=== PATIENT | male | born 1950 | race Caucasian/White ===

== ENCOUNTER → 2017-01-04 | Outpatient (CLI) | payer BC ==
[~2017-01-04] MED LIST: ASPCH81X PO; ATOR-26 PO; DRON400T PO; FLUT0.15; GARL1TAB11 PO; HYDR-5688 PO; LEVO175T3 PO; LPR25 PO; NSP500 PO; PRLSR20 PO; RAMI10CA PO; TAMS0.4C38 PO
--- NOTE | 2017-01-04 17:44 | MYOCARDIAL PERFUSION SCAN ---
NUCLEAR STRESS TEST REQUESTING PHYSICIAN: Dr. Anthony Wang. PRIMARY CARE PHYSICIAN: Kennedy Hogan III MD STUDY TITLE: One-day nuclear medicine technetium-99m Cardiolite myocardial perfusion scan. INDICATION: Atypical chest pain, indeterminant stress echocardiogram. EKG: Normal sinus rhythm at ventricular rate of 62. Possible inferior infarct. No significant ST abnormalities. Stress EKG, occasional PACs, occasional PVCs. Exercised for 7 minutes and 3 seconds achieving 10.1 METs and 101% of maximum predicted heart rate. Blood pressure colton from 120/80-164/84. There was no significant exercise induced chest pain. Study was stopped due to shortness of breath. STRESS EKG: Showed 1 mm inferior horizontal/downsloping ST depressions, which resolved quickly less than 2 minutes in the recovery. TECHNIQUE: For the stress portion of the study 31.8 mCi of technetium-99m Cardiolite IV was injected at 1350 p.m. on 01/04/2017. Fifteen minutes following the injection, imaging of the heart was performed in multiple projections. For the rest portion of the study, 11.0 mCi of technetium-99m Cardiolite was injected IV at 11:30 a.m. One hour following the injection, imaging of the heart was performed in the same projections. FINDINGS: Raw images were reviewed in detail. There was noted mild diaphragmatic attenuation and mild gut uptake potentially impacting imaging of the inferior aspect of the heart. Otherwise, there was no significant pathologic extracardiac uptake. Short axis, horizontal long axis, vertical long axis images were reviewed in detail. There was no evidence of t.i.d. There was a severe moderate sized fixed inferior perfusion defect from the base to mid segment. There was no evidence of significant ischemia. There was normal LV function with an EF of 54%. The inferior base to midsegment was akinetic. LV size was upper limit of normal with an end-diastolic volume of 138 mL. IMPRESSION: 1. 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 No stress induced perfusion abnormalities. 2. Positive exercise EKG with [address] depressions, which quickly resolved in recovery. 3. Normal LV function with an EF of 54%. Inferior wall is akinetic from base to mid segment. 4. Above average functional capacity, exercised 7 minutes achieving 10 METs. No exercise induced chest pain. Normal hemodynamic response to exercise. 5. Overall, in this patient with known coronary artery disease likelihood of significant ischemia based on these findings is low. MTDD
== END | disposition home or self-care (01) ==
LOC: C.NUCL 10:56
PROVIDERS: ATTEND Internal Medicine Interventional Cardiology
DX: I25.10 Atherosclerotic heart disease of native coronary artery without angina pectoris (principal)

== ENCOUNTER → 2017-01-25 | Outpatient (CLI) | payer BC ==
[2017-01-25 12:41] LABS: BASO % 0.2 %; BASO ABS # 0.01 K/uL (0-0.2); COMPLETE YES; EOS % 4.7 %; HEMATOCRIT 40.5 % (42-52); IG% 0.5 %; LYMPH % 27.5 %; LYMPH ABS # 1.18 K/uL (1.2-3.4); MEAN CELL VOLUME 100.2 fL (80-100); MEAN CORPUSCULAR HEMOGLOBIN 34.2 pg (25-34); MEAN CORPUSCULAR HGB CONC 34.1 g/dl (32-36); MEAN PLATELET VOLUME 10.4 fL (7.4-10.4); MONO % 16.3 %; NEUT % 50.8 %; PLATELET COUNT 167 K/uL (130-400); RED BLOOD COUNT 4.04 M/uL (4.7-6.1); WHITE BLOOD COUNT 4.29 K/uL (4.8-10.8)
[2017-01-25 13:11] LABS: ALKALINE PHOSPHATASE 65 U/L (45-117); ALT/SGPT 24 U/L (12-78); AST/SGOT 20 U/L (15-37); BLOOD UREA NITROGEN 23 mg/dl (7-18); BUN/CREATININE RATIO 20.6 (10-20); CALCIUM 8.4 mg/dl (8.5-10.1); CARBON DIOXIDE 28 mmol/L (21-32); CHLORIDE 110 mmol/L (98-107); GLUCOSE 96 mg/dl (70-99); POTASSIUM 4.6 mmol/L (3.5-5.1); SODIUM 144 mmol/L (136-145)
[2017-01-25 13:12] LABS: ESTIMATED AVERAGE GLUCOSE 114 mg/dl; HA1C FLAG Normal (Normal)
[2017-01-25 13:23] LABS: ALB/GLOB RATIO 1.2 (0.9-2); CHOLESTEROL 139 mg/dl (0-200); CHOLESTEROL/HDL RATIO 2.6; HDL CHOLESTEROL 53 mg/dl; LDL CHOLESTEROL CALCULATED 67 mg/dl; TRIGLYCERIDES 96 mg/dl (0-150); VERY LOW DENSITY LIPOPROT CALC 19 mg/dl
== END | disposition home or self-care (01) ==
LOC: C.LABBFT 08:37
PROVIDERS: ATTEND Internal Medicine
DX: I25.10 Atherosclerotic heart disease of native coronary artery without angina pectoris (principal); Z12.5 Encounter for screening for malignant neoplasm of prostate; R73.01 Impaired fasting glucose; E03.9 Hypothyroidism, unspecified

== ENCOUNTER → 2017-04-10 | Outpatient (CLI) | payer BC ==
--- NOTE | 2017-04-10 08:02 | DIAGNOSTIC IMAGING REPORT ---
MRI right knee RIGHT LOWER EXT JOINT WITHOUT CLINICAL HISTORY: R KNEE Pain, r/o TEAR Right pain TECHNIQUE: MRI multi axial acquisition COMPARISON STUDY: None. FINDINGS: Signal characteristics the osseous structures are unremarkable. There is a very slight degree of bone marrow edema of the medial margin medial tibial plateau. All remaining osseous signal characteristics are unremarkable. There is a small joint effusion. Several small synechiae of the suprapatellar bursa are present. Medial and lateral patellar retinaculum are intact. Collateral ligaments structures appear unremarkable. There is a mild sprain of the medial collateral ligament. Anterior and posterior cruciate ligaments are intact. Evaluation of menisci shows lateral meniscus to be normal. Medial meniscus shows slight apical truncation. There are findings of mild degenerative changes of the articular services the medial compartment. Moderate thinning of the articular services appears to be present. IMPRESSION: 1. Mild contusion medial tibial plateau possibly on a degenerative basis.. 2. Several synechiae of the suprapatellar bursa. 3. Slight truncation apex mid medial meniscus with moderate degenerative change and/or thinning of the articular services of the medial compartment. 4. Small joint effusion. Electronically signed by: Dinesh Rai M.D. 04/10/2017 8:01 AM Dictated Date/Time: 04/10/2017 7:56 AM
== END | disposition home or self-care (01) ==
LOC: C.MRIBC 06:44
PROVIDERS: ATTEND Orthopaedic Surgery
DX: M25.561 Pain in right knee (principal)

== ENCOUNTER → 2017-04-25 | Day surgery (SDC) | payer BC ==
[2017-04-17 11:24] VITALS: Ht 193 cm; Wt 111.4 kg
--- NOTE | 2017-04-20 09:21 | PAT Medication Instructions ---
Service Date Apr 20, 2017. Current Home Medication List Aspirin (Aspirin Chewable), 81 MG PO HS Atorvastatin (Lipitor), 80 MG PO HS Dronedarone Hcl (Multaq), 1 TAB PO BID Fluticasone Propionate (Nasal) (Flonase Allergy Relief), 1 SPRAY NA DAILY Garlic (Garlic), 1,250 MG PO QAM Levothyroxine Sodium (Levothyroxine Sodium), 1 TAB PO QAM Metoprolol Tartrate (Lopressor), 12.5 MG PO BID Niacin Ext Rel (Niaspan Ext Rel), 2,000 MG PO QPM Omeprazole (Prilosec), 20 MG PO QAM Ramipril (Ramipril), 1 CAP PO QPM Tamsulosin Hcl (Flomax), 0.4 MG PO QPM Medication Instructions For Your Scheduled Surgery - Hold the following medications as of 04/21/17: Garlic (Garlic), 1,250 MG PO QAM - Take the following medications the morning of surgery with a sip of water OTHERWISE NOTHING TO EAT OR DRINK AFTER MIDNIGHT: Dronedarone Hcl (Multaq), 1 TAB PO BID Levothyroxine Sodium (Levothyroxine Sodium), 1 TAB PO QAM Metoprolol Tartrate (Lopressor), 12.5 MG PO BID Omeprazole (Prilosec), 20 MG PO QAM - Take the following medications as scheduled the night before surgery: Aspirin (Aspirin Chewable), 81 MG PO HS Atorvastatin (Lipitor), 80 MG PO HS Tamsulosin Hcl (Flomax), 0.4 MG PO QPM Metoprolol Tartrate (Lopressor), 12.5 MG PO BID Dronedarone Hcl (Multaq), 1 TAB PO BID - Do not take the following medications the afternoon/evening before surgery: Niacin Ext Rel (Niaspan Ext Rel), 2,000 MG PO QPM Ramipril (Ramipril), 1 CAP PO QPM If you have any questions please call us at [phone] or [phone] or [phone]
[2017-04-20 10:05] LABS: HEMATOCRIT 44.6 % (42-52); PLATELET COUNT 166 K/uL (130-400); RED BLOOD COUNT 4.46 M/uL (4.7-6.1); WHITE BLOOD COUNT 6.03 K/uL (4.8-10.8)
[2017-04-20 10:40] LABS: BUN/CREATININE RATIO 21.2 (10-20); CALCIUM 8.9 mg/dl (8.5-10.1); CREATININE 1.4 mg/dl (0.60-1.40); POTASSIUM 4.5 mmol/L (3.5-5.1)
[~2017-04-25] VITALS: Ht 193 cm; Wt 111.4 kg
[~2017-04-25] MED LIST changes: +ATROPINE SULFATE 0.1 MG/ML 5ML SYR IV PRN; +BUPIVACAINE 0.5 % 5 MG/1 ML PF 10ML VIAL ONE; +CEFAZOLIN 2000 MG/60 ML D5W 60 ML IV SCH; +EpHEDrine SULFATE INJ 50 MG/ML AMP IV PRN; +EpINEphrine INJ 1MG/ML AMP 1 MG/ML AMP ONE; +FENTANYL CITRATE INJ 50 MCG/1 ML 2 ML VIAL ONE; +FLUMAZENIL 0.1 MG/1 ML 10 ML VIAL IV PRN; +HYDROmorphone INJ 1 MG/ML SYR IV PRN; +KETOROLAC TROMETHAMINE 30 MG/ML VIAL ONE; +LABETALOL HCL IV 5 MG/ML 20ML IV PRN; +LACTATED RINGER'S 1000ML 1,000 ML IV SCH; +LIDOCAINE HCL 2% 2 ML VIAL (20MG/ML) ONE; +MIDAZOLAM HCL 1 MG/ML 2ML VIAL ONE; +NALOXONE HCL 0.4 MG/1 ML VIAL/CARP IV PRN; +ONDANSETRON INJ 2 MG/ML 2 ML VIAL IV PRN; +ONDANSETRON INJ 2 MG/ML 2 ML VIAL ONE; +OXYCODONE/ACETAMINOPHEN 5-325 TAB PO PRN; +PROMETHAZINE HCL INJ 12.5 MG in SODIUM CHLORIDE 0.9% 50ML 50 ML IV PRN; +PROPOFOL IV EMULSION 10 MG/ML 20 ML VIAL IV ONE; +ROPIVACAINE 0.5% 5 MG/ML 30 ML VIAL ONE; +SODIUM CHLORIDE 0.9% 1000ML 1,000 ML IV SCH
--- NOTE | 2017-04-25 09:20 | History & Physical Bridge - SC ---
H&P Re-Evaluation Bridge Note: I have examined the patient, reviewed the History & Physical and in the interval since the performance of the History & Physical I have noted the following changes of clinical significance: No changes noted
--- NOTE | 2017-04-25 11:16 | [facility] Post Operative Brief Note ---
Immediate Operative Summary Operative Date Apr 25, 2017. Pre-Operative Diagnosis Right knee medial meniscus tear Post-Operative Diagnosis Same as preop Procedure(s) Performed Right Knee Arthroscopy, Partial Medial Meniscectomy Surgeon Dr. Foreman Ux Consultant Surgeon(s) None Estimated Blood Loss 0 mL Findings ABOVE Specimens None Anesthesia LMA Complication(s) None Disposition Recovery Room / PACU
--- NOTE | 2017-04-25 11:28 | Discharge Instructions-SurgCtr ---
Discharge Instructions Date of Service Apr 25, 2017. Visit Reason for Visit: Right Knee Tear Of Medial Cartilage &/Or Meniscus Discharge Discharge Diagnosis / Problem: SAME ABOVE Discharge Goals Goal(s): Decrease discomfort, Improve function Medications Stopped Medications Name(s): garlic, stopped 4 nights ago, niastan & remapril not taken yesterday Activity Recommendations Activity Limitations: as noted below Lifting Limitations: gradually increase as tolerated Exercise/Sports Limitations: until after follow-up appointment Shower/Bathe: may shower/bathe in 3 days Anesthesia . Post Anesthesia Instructions: If you have had General Anesthesia or IV Sedation: * Do not drive today. * Resume driving when surgeon permits. * Do not make important decisions or sign legal documents today. * Call surgeon for: 1. Temperature elevations greater than 101 degrees F. 2. Uncontrollable pain. 3. Excessive bleeding. 4. Persistent nausea and vomiting. 5. Medication intolerance (nausea, vomiting or rash). * For nausea and vomiting use only clear liquids such as: tea, soda, bouillon until nausea subsides, then gradually increase diet as tolerated. * If you have any concerns or questions, call your surgeon's office. If physician is unavailable and it is an emergency, call 911 or go to the nearest emergency room. . Instructions / Follow-Up Instructions / Follow-Up MEDICATIONS: * Resume previous medications unless instructed otherwise by your surgeon. * Always take pain medication on a full stomach or with food to avoid upset stomach. * Do not drink alcohol or drive while taking narcotics. * Ibuprofen or Tylenol may be taken if narcotic not needed. SPECIAL CARE INSTRUCTIONS: __ None _X_ Keep extremity elevated and iced x 48 hours; apply ice 20-30 minutes 8-10 times/day. May remove at night. __ Crutches __ May discard when able __ Brace/Post-op shoe __ 24 hrs/day __ Remove at night _X_ Dressing __ Maintain until seen in office, may shower with plastic over site _X_ Remove dressings in 24-48 hours and then may shower _X_ Cover incisions with band-aids after showering __ Do not remove steri-strips Call physician if chills or temperature rises above 102 degrees or pain unrelieved by prescribed pain medications. Office [phone] Diet Recommendations Home Diet: resume previous diet Procedures Procedures Performed: Right Knee Arthroscopy, Partial Medial Meniscectomy Pending Studies Studies pending at discharge: no Medical Emergencies . Who to Call and When: Medical Emergencies: If at any time you feel your situation is an emergency, please call 911 immediately. . Non-Emergent Contact Non-Emergency issues call your: Primary Care Provider . . "Provider Documentation" section prepared by Goyo Jennings. .
[2017-04-25 12:19] VITALS: TEMP 36.2
[2017-04-25 12:37] VITALS: BP 132/88; PULSE 66; O2SAT 96
--- NOTE | 2017-04-25 12:42 | Anesthesia Progress Nt - [facility] ---
Anesthesia Post Op Note Date & Time Apr 25, 2017 at 12:42 Vital Signs Pain Intensity: 3.0 Vital Signs Past 12 Hours Date Time Temp Pulse Resp B/P (MAP) Pulse Ox O2 Delivery O2 Flow Rate FiO2 04/25/17 12:37 66 18 132/88 (103) 96 Room Air 04/25/17 12:19 36.2 56 16 124/72 (89) 97 Room Air 04/25/17 11:56 129/86 04/25/17 11:54 60 29 97 04/25/17 11:54 57 29 04/25/17 11:51 143/92 04/25/17 11:49 66 23 04/25/17 11:49 65 23 96 04/25/17 11:49 36.4 04/25/17 11:46 133/86 04/25/17 11:44 58 14 04/25/17 11:44 57 14 95 04/25/17 11:41 127/83 04/25/17 11:39 59 20 04/25/17 11:39 58 20 98 04/25/17 11:36 121/80 04/25/17 11:34 60 16 97 04/25/17 11:34 62 16 04/25/17 11:31 124/77 04/25/17 11:29 59 14 04/25/17 11:29 59 14 97 04/25/17 11:26 118/77 04/25/17 11:24 66 120/77 96 04/25/17 11:24 66 04/25/17 11:23 36.2 67 16 120/77 96 Diffusion Mask 04/25/17 09:05 36.5 59 16 115/75 (88) 96 Room Air Notes Mental Status: alert / awake / arousable, participated in evaluation Pt Amnestic to Procedure: Yes Nausea / Vomiting: adequately controlled Pain: adequately controlled Airway Patency, RR, SpO2: stable & adequate BP & HR: stable & adequate Hydration State: stable & adequate Anesthetic Complications: no major complications apparent
--- NOTE | 2017-04-27 08:39 | OPERATIVE REPORT ---
DATE OF SURGERY: 04/25/17 PREOPERATIVE DIAGNOSIS: Medial meniscus tear right knee. POSTOPERATIVE DIAGNOSIS: Same. PROCEDURE: 1. Right knee arthroscopy. 2. Partial medial meniscectomy. SURGEON: Dr. Foreman NEWS LIBRARY DIRECTOR: Goyo Jennings PA-C ANESTHESIOLOGIST: Dr. Leon ANESTHESIA: LMA DRAINS: None COMPLICATIONS: None CONDITION: The patient tolerated the procedure well and returned to the recovery room in apparent satisfactory condition. INDICATIONS FOR SURGERY: Troy is a 66-year-old male who has had pain and discomfort after injuring his knee a couple of months back when he was working out. He continued to have pain and discomfort and got a cortisone shot and conservative care and did not improve. MRI showed a medial meniscus tear and elected to go ahead and proceed with surgery. Procedure, expected outcomes, side effects, and risks were all explained in detail. DESCRIPTION OF PROCEDURE: The patient was taken to the OR, at which time he was placed supine on the operating table. He was put to sleep by anesthesia department. Examination of the right knee was performed. Ligamentous niño was stable. Went ahead and prepped and draped in usual sterile fashion. We began arthroscopic examination in the anteromedial and anterolateral portals. We immediately found a flap tear of the posterior horn of the medial meniscus. It was flipped underneath the meniscus and we reduced it back into place and came in with upbiting scissors and full radius resector and trimmed it back to a stable rim. The articular surfaces looked to be in good shape. ACL was inspected and found to be fine and lateral compartment was fine. Patellofemoral joint was looked at also. He had a little plica band that was removed. Everything else was in good shape. The knee was then copiously irrigated. All cannulas were removed. Portals were closed with 4-0 nylon sutures. 30 cc of Ropivacaine, 10 mg of Toradol, and 1 cc of epinephrine was placed in the knee joint. Placed in a sterile dressing of Xeroform, 4 x 4's, ABD, Sof-Rol, and Lasha bandage and returned back to recovery room in apparent satisfactory condition. SURGICAL FINDINGS: Included a flap tear of the posterior horn medial meniscus.
== END | disposition home or self-care (01) ==
LOC: X.SURG 08:37
PROVIDERS: ATTEND Orthopaedic Surgery
DX: S83.241A Other tear of medial meniscus, current injury, right knee, initial encounter (principal); I10 Essential (primary) hypertension; E07.9 Disorder of thyroid, unspecified; I25.2 Old myocardial infarction; Z95.1 Presence of aortocoronary bypass graft; X58.XXXA Exposure to other specified factors, initial encounter; Z79.899 Other long term (current) drug therapy

== ENCOUNTER → 2018-02-06 | Outpatient (CLI) | payer BC ==
[~2018-02-06] MED LIST changes: -ATROPINE SULFATE 0.1 MG/ML 5ML SYR IV PRN; -BUPIVACAINE 0.5 % 5 MG/1 ML PF 10ML VIAL ONE; -CEFAZOLIN 2000 MG/60 ML D5W 60 ML IV SCH; -EpHEDrine SULFATE INJ 50 MG/ML AMP IV PRN; -EpINEphrine INJ 1MG/ML AMP 1 MG/ML AMP ONE; -FENTANYL CITRATE INJ 50 MCG/1 ML 2 ML VIAL ONE; -FLUMAZENIL 0.1 MG/1 ML 10 ML VIAL IV PRN; -HYDR-5688 PO; -HYDROmorphone INJ 1 MG/ML SYR IV PRN; -KETOROLAC TROMETHAMINE 30 MG/ML VIAL ONE; -LABETALOL HCL IV 5 MG/ML 20ML IV PRN; -LACTATED RINGER'S 1000ML 1,000 ML IV SCH; -LIDOCAINE HCL 2% 2 ML VIAL (20MG/ML) ONE; -MIDAZOLAM HCL 1 MG/ML 2ML VIAL ONE; -NALOXONE HCL 0.4 MG/1 ML VIAL/CARP IV PRN; -ONDANSETRON INJ 2 MG/ML 2 ML VIAL IV PRN; -ONDANSETRON INJ 2 MG/ML 2 ML VIAL ONE; -OXYCODONE/ACETAMINOPHEN 5-325 TAB PO PRN; -PROMETHAZINE HCL INJ 12.5 MG in SODIUM CHLORIDE 0.9% 50ML 50 ML IV PRN; -PROPOFOL IV EMULSION 10 MG/ML 20 ML VIAL IV ONE; -ROPIVACAINE 0.5% 5 MG/ML 30 ML VIAL ONE; -SODIUM CHLORIDE 0.9% 1000ML 1,000 ML IV SCH
[2018-02-06 12:33] LABS: BASO % 0.2 %; BASO ABS # 0.01 K/uL (0-0.2); EOS % 3.5 %; EOS ABS # 0.19 K/uL (0-0.5); HEMATOCRIT 41.7 % (42-52); HEMOGLOBIN 14.1 g/dL (14.0-18.0); IG# 0.02 K/uL (0.00-0.02); LYMPH % 28.4 %; LYMPH ABS # 1.52 K/uL (1.2-3.4); MEAN CELL VOLUME 99.8 fL (80-100); MEAN CORPUSCULAR HEMOGLOBIN 33.7 pg (25-34); MEAN CORPUSCULAR HGB CONC 33.8 g/dl (32-36); MEAN PLATELET VOLUME 9.9 fL (7.4-10.4); MONO % 12.5 %; MONO ABS # 0.67 K/uL (0.11-0.59); NEUT ABS # 2.95 K/uL (1.4-6.5); PLATELET COUNT 165 K/uL (130-400); RED CELL DISTRIBUTION WIDTH CV 13.1 % (11.5-14.5); RED CELL DISTRIBUTION WIDTH SD 47.3 fL (36.4-46.3); WHITE BLOOD COUNT 5.36 K/uL (4.8-10.8)
[2018-02-06 12:52] LABS: HEMOGLOBIN A1C 5.7 % (4.5-5.6)
[2018-02-06 13:06] LABS: ALBUMIN 3.8 gm/dl (3.4-5.0); ALKALINE PHOSPHATASE 72 U/L (45-117); ALT/SGPT 23 U/L (12-78); AST/SGOT 19 U/L (15-37); BLOOD UREA NITROGEN 26 mg/dl (7-18); CALCIUM 8.9 mg/dl (8.5-10.1); CARBON DIOXIDE 26 mmol/L (21-32); CHOLESTEROL 154 mg/dl (0-200); CREATININE 1.39 mg/dl (0.60-1.40); GLUCOSE 98 mg/dl (70-99); POTASSIUM 4.8 mmol/L (3.5-5.1); SODIUM 138 mmol/L (136-145); TOTAL PROTEIN 7.1 gm/dl (6.4-8.2)
[2018-02-06 13:19] LABS: LDL CHOLESTEROL CALCULATED 74 mg/dl
== END | disposition home or self-care (01) ==
LOC: C.LABBFT 07:49
PROVIDERS: ATTEND Internal Medicine
DX: I25.10 Atherosclerotic heart disease of native coronary artery without angina pectoris (principal); R73.01 Impaired fasting glucose; E03.9 Hypothyroidism, unspecified; Z12.5 Encounter for screening for malignant neoplasm of prostate